=== PATIENT | female | born 1955 | race Caucasian/White ===

== ENCOUNTER → 2021-05-06 15:43 | Outpatient (POV) | payer MEDICARE, SELFPAY | PROVIDERS: Visit Provider Dermatology | DX: Z00.00 Encounter for general adult medical examination without abnormal findings (principal) ==

== ENCOUNTER → 2022-09-28 14:24 | Outpatient (POV) | payer MEDICARE, SELFPAY ==
[2022-09-28 15:51] VITALS: BP 128/75; PULSE 81; RESP 18; O2SAT 96; BMI 28.9
--- NOTE | 2022-09-28 15:57 | EXP.PAIN.OV ---
HPI Data of Consult Patient: new to practice Consult date: 09/28/22 Requesting Physician: Adrienne Plascencia APRN Primary Care Provider: Lazaro Ballesteros Consult Narrative Reason for consult: Mid back pain, low back pain, right knee pain, generalized joint pain History of present illness: Ms. Clarke is a 67 year old female who presents today as a new patient. She is a referral from Dr. Christos Ballesteros's office. Today she rates her pain a 5 out of 10. Patient states her pain out her body. She does state that she has significant mid and low back pain along with right knee pain. 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 Patient does state that she chronically has pain throughout her joints. She does describe this as a constant aching, throbbing sensation that is worse with increased activity. Patient does state it interferes with her ability to perform activities of daily living such as cooking and cleaning or even simply getting ready. Patient cannot tolerate prolonged standing or walking due to the pain. 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 Patient states that she did end up finding a high risk doctor who would do injections in the past up in [place]. She states she has had multiple injections that have provided some improvement. She does state that she is coming to our office because she is tired of the drive back and forth to [place]. She does state that she also is scheduled for a cardiac work-up next week with a cardiac cath to possibly rule out any additional issues. This is going on at [facility] with the Dr. Phoenix. She does state that she used to be an echo vascular technologist in the past and she thinks the repetitive motions may have caused additional symptoms in her mid back. She does state that this is the worst area of her pain. She does state also that she frequently throws her back out. Patient does have approximately 10 acres and lives alone maintaining the property. Patient states in the past she was even on palliative care for approximately 8 years and was on high-dose oral pain medications to treat her pain. She does state that her pain on her right knee is related to a tibial plateau fracture. Patient has tried multiple muscle relaxers including Skelaxin and is currently on Robaxin. Patient does also have a history of restless leg syndrome and takes Mirapex. Patient also states she has a history of neuropathy in her toes and feet. She is currently prescribed tramadol 50 mg 3 times a day from her primary care doctor. She states she also uses CBD oil from [facility] that does provide some improvement of her symptoms. Patient also uses ice on a regular basis and has tried multiple topicals with minimal improvement. Patient has tried gabapentin in the past however she did not like the way it made her feel. Her Kamari is [id number]. Its been reviewed and appropriate. CC: Adrienne Plascencia APRN [facility] Disclaimer: The information contained in this section may have been updated after the patient was seen, as this information can be updated by other users. Medical History (Updated 09/28/22 @ 16:08 by Adrienne Plascencia APRN) Anxiety Celiac disease Depression Discitis of lumbar region Fibromyalgia H/O malignant neoplasm of breast HTN (hypertension) Osteopenia Vitamin D deficiency Family History (Updated 09/28/22 @ 15:56 by Dania Mayorga RN) Other Coronary artery disease Heart attack Hypertension Lung cancer Social History (Updated 09/28/22 @ 15:57 by Dania Mayorga RN) Smoking Status: Current every day smoker alcohol intake: current current occupational status: disabled Travel in the last 8 weeks: None Review of Systems Review of Systems Review of systems:: pertinent systems reviewed and negative unless documented below Review of systems (narrative): Review of Systems: General: No recent
== END ==
PROVIDERS: PCP Family Medicine; Visit Provider Nurse Practitioner Family
DX: M51.16 Intervertebral disc disorders with radiculopathy, lumbar region (principal); M51.34 Other intervertebral disc degeneration, thoracic region; M25.561 Pain in right knee; M25.50 Pain in unspecified joint
CPT/HCPCS: 99202; G0463